=== PATIENT | male | born 1970 | race Caucasian/White ===

== ENCOUNTER 2016-10-11 10:49 | Day surgery (SDC) | payer BC ==
--- NOTE | ~2016-10-11 | EGD ---
EGD REPORT [facility] [address] [address] NAME: MIKEL GLEASON : [birth year] STATUS : REG [facility]#: [id number] AGE: 46 ADM/REG DATE : 10/11/16 MR#: [id number] REPORT SERV DATE: 10/11/16 DICTATED BY: NHUNG HORTON DATE: 10/11/16 REPORT STATUS : Draft TRANSCRIBED BY: [facility] DATE: 10/11/16 Endoscopy Center Patient Name: Mikel Gleason Date of : 1970 Attending MD: NHUNG HORTON MD Procedure Date No Time: 10/11/2016 Procedure: Upper GI endoscopy Indications: Heartburn, Suspected esophageal reflux, Personal history of peptic ulcer disease Referring MD: PAT PADILLA III Medicines: as per anesthesia Complications: No immediate complications. Procedure: Pre-Anesthesia Assessment: - ASA Grade Assessment: II - A patient with mild systemic disease. After obtaining informed consent, the endoscope was passed under direct vision. Throughout the procedure, the patient's blood pressure, pulse, and oxygen saturations were monitored continuously. The GIF [id number] was introduced through the mouth, and advanced to the third part of duodenum. The upper GI endoscopy was accomplished without difficulty. The patient tolerated the procedure. Findings: The examined esophagus was normal. Localized mild inflammation characterized by erythema was found in the gastric antrum. Biopsies were taken with a cold forceps for histology. The cardia and gastric fundus were normal on retroflexion. Localized mild inflammation characterized by erythema was found in the duodenal bulb. Impression: - Normal esophagus. - Gastritis. Biopsied. - Duodenitis. Recommendation: - Await pathology results. - Follow an antireflux regimen. - Continue present medications. Procedure Code(s): --- Professional --- 92988, Esophagogastroduodenoscopy, flexible, transoral; with biopsy, single or multiple Diagnosis Code(s): --- Professional --- EGD REPORT [address] [place]. [address] NAME: MIKEL GLEASON : [birth year] STATUS : REG [facility] PAT#: [id number] AGE: 46 ADM/REG DATE : 10/11/16 MR#: [id number] REPORT SERV DATE: 10/11/16 DICTATED BY: NHUNG HOTRON. DATE: 10/11/16 REPORT STATUS : Draft TRANSCRIBED BY: [employer] DATE: 10/11/16 K29.70, Gastritis, unspecified, without bleeding K29.80, Duodenitis without bleeding R12, Heartburn Z87.11, Personal history of peptic ulcer disease CPT copyright 2013 [employer]. All rights reserved. The codes documented in this report are preliminary and upon electrical supervisor review may be revised to meet current compliance requirements. NHUNG HORTON MD 10/11/2016 12:53 PM This report has been signed electronically. Number of Addenda: 0 Note Initiated On: 10/11/2016 12:30 PM Scope Withdrawal Time 0 hours 0 minutes [address] [place], [place] [address] [address]
[~2016-10-11 10:49] MED LIST: ALEVE220 MG PO; BEN25 PO; FLEX PO; NEXIUM40 PO; PROAIR HFA INH; RED YEAS1 PO; SINGULAIR1 PO
== END 2016-10-11 23:59 | disposition home or self-care (01) ==
LOC: DMU 10:49
PROVIDERS: Internal Medicine Gastroenterology
PROC: 0DB68ZX Excision of Stomach, Via Natural or Artificial Opening Endoscopic, Diagnostic (ICD-10-PCS; principal; 2016-10-11 12:30)
DX: K21.9 Gastro-esophageal reflux disease without esophagitis (principal); K31.89 Other diseases of stomach and duodenum; J45.909 Unspecified asthma, uncomplicated; J32.9 Chronic sinusitis, unspecified; Z79.899 Other long term (current) drug therapy
CPT/HCPCS: 88305